=== PATIENT | female | born 1980 | race Caucasian/White ===

== ENCOUNTER 2018-02-13 14:06 | Emergency (ER) | payer SELFPAY ==
[~2018-02-13] VITALS: Ht 175.3 cm; Wt 135.2 kg
[2018-02-13 14:09] VITALS: Ht 175.3 cm; Wt 135.2 kg
[2018-02-13 15:14] VITALS: BP 138/92
== END 2018-02-13 15:14 | disposition home or self-care (01) ==
LOC: ED 14:06
DX: L02.414 Cutaneous abscess of left upper limb (principal)
CPT/HCPCS: J2001

== ENCOUNTER 2018-02-16 12:12 | Emergency (ER) | payer SELFPAY ==
[~2018-02-16] VITALS: Ht 175.3 cm; Wt 133.4 kg
[2018-02-16 12:23] VITALS: Ht 175.3 cm; Wt 133.4 kg
[2018-02-16 12:55] VITALS: BP 127/64
== END 2018-02-16 13:04 | disposition home or self-care (01) ==
LOC: ED 12:12
DX: Z48.01 Encounter for change or removal of surgical wound dressing (principal)